=== PATIENT | female | born 1955 | race Caucasian/White ===

== ENCOUNTER 2018-02-21 08:39 | Outpatient (CLI) | payer BC | END 2018-02-21 23:59 | disposition home or self-care (01) | LOC: RAD 08:39 | PROVIDERS: ATTEND Physician Assistant | DX: M22.41 Chondromalacia patellae, right knee (principal); M25.461 Effusion, right knee | CPT/HCPCS: 73721 ==

== ENCOUNTER 2018-08-01 14:27 | Outpatient (CLI) | payer BC ==
[~2018-08-01] VITALS: Ht 170.2 cm; Wt 77.1 kg
[2018-08-01] MEDS ORDERED: LEVO50TA8 PO (15:13)
[2018-08-01] MEDS ORDERED: TRAZ-218 PO (15:13)
[2018-08-01] MEDS ORDERED: CHOL100046 PO (15:13)
[2018-08-01] MEDS ORDERED: ESCI10TA PO (15:13)
[2018-08-01] MEDS ORDERED: LOSA25TA96 PO (15:13)
[2018-08-01] MEDS ORDERED: DOCU-28 PO (15:13)
[2018-08-01] MEDS ORDERED: FIBER PO (15:13)
[2018-08-01] MEDS ORDERED: ATOR20TA PO (15:13)
[2018-08-01 15:31] LABS: BASOPHILS % (AUTO) 0.3 % (0-1); EOSINOPHILS # (AUTO) 0.3 X10'3 (0-0.9); EOSINOPHILS % (AUTO) 4.2 % (0-6); LYMPHOCYTES # (AUTO) 3.1 X10'3 (1.1-4.8); LYMPHOCYTES % (AUTO) 37.9 % (21-51); MEAN CORPUSCULAR HEMOGLOBIN 30.3 PG (27.0-31.0); MEAN CORPUSCULAR HGB CONC 33.2 % (33.0-36.5); MEAN PLATELET VOLUME 7.4 FL (7.4-10.4); MONOCYTES # (AUTO) 0.5 X10'3 (0-0.9); MONOCYTES % (AUTO) 5.6 % (2-12); NEUTROPHILS # (AUTO) 4.2 X10'3 (1.8-7.7); PRE OP HEMATOCRIT 40.4 % (35.0-45.0); PRE OP HEMOGLOBIN 13.4 g/dL (12.0-16.0); PRE OP PLATELET COUNT 241 X10'3 (140-440); RED BLOOD COUNT 4.43 X10'6 (4.20-5.60); RED CELL DISTRIBUTION WIDTH 13.5 % (11.5-14.5)
[2018-08-01 15:34] LABS: CLARITY,URINE CLEAR (Clear); COLOR,URINE YELLOW (Yellow); GLUCOSE, URINE NEGATIVE (Neg); KETONES,URINE NEGATIVE (Neg); LEUKOCYTE ESTERASE ,URINE NEGATIVE (Neg); NITRITES, URINE NEGATIVE (Neg); OCCULT BLOOD,URINE NEGATIVE (Neg); PH,URINE 5.5 (4.8-8.0); PROTEIN,URINE NEGATIVE (Neg); UROBILINOGEN,URINE 0.2 E.U/dL (0.2-1.0)
[2018-08-01 15:36] LABS: UA COLLECTION TYPE CLN CATCH MIDSTREAM
[2018-08-01 15:41] LABS: PRE OP INR 1.1 INR; PRE OP PROTIME 10.7 SECONDS (9.0-12.0)
[2018-08-01 15:53] LABS: ALBUMIN 2.8 G/DL (3.4-5.0); ALBUMIN/GLOBULIN RATIO 0.7 (1.1-1.5); ALKALINE PHOSPHATASE 99 IU/L (46-116); BLOOD UREA NITROGEN 14 MG/DL (7-18); BUN/CREATININE RATIO 18.2 (6.6-38.0); CHLORIDE 104 MMOL/L (99-107); CREATININE 0.77 MG/DL (0.40-0.90); PRE OP ALT 33 U/L (30-65); PRE OP ANION GAP 5 (8-16); PRE OP AST 21 U/L (10-37); PRE OP BILIRUB, TOTAL 0.2 MG/DL (0.0-1.0); PRE OP GLUCOSE 91 MG/DL (70-104); PRE OP POTASSIUM 3.5 MMOL/L (3.4-5.1); PRE OP SODIUM 141 MMOL/L (135-145); TOTAL PROTEIN 6.8 G/DL (6.4-8.2); eGFR 76 ML/MIN
[2018-08-13] MEDS ORDERED: ringers solution, lacted 1,000 ML IV SCH (05:00)
[2018-08-13] MEDS ORDERED: celeCOXIB 100mg capsule PO ONE (05:30)
[2018-08-13] MEDS ORDERED: gabapentin 300mg capsule PO ONE (05:30)
[2018-08-13] MEDS ORDERED: acetaminophen 325mg tablet PO ONE (05:30)
[2018-08-13] MEDS ORDERED: cefazolin/dext.iso 2gm/100 ML IV ONE (05:30)
[2018-08-13] MEDS ORDERED: oxyCODONE SR 10mg (sust. release) tab PO ONE (05:30)
[2018-08-13] MEDS ORDERED: tranexamic acid inj. 1,500 MG in normal saline 100ml IV soln 85 ML IV ONE (05:30)
[2018-08-13] MEDS ORDERED: famotidine 20mg tablet PO ONE (05:30)
[2018-08-13] MEDS ORDERED: metoclopramide 5 mg/ml inj IV ONE (05:30)
== END 2018-08-07 23:59 | disposition home or self-care (01) ==
LOC: PRE-OP 14:27 → EDSTATUS 08-13 07:30
PROVIDERS: ATTEND Specialist
DX: Z01.812 Encounter for preprocedural laboratory examination (principal); M17.11 Unilateral primary osteoarthritis, right knee; E89.0 Postprocedural hypothyroidism; I10 Essential (primary) hypertension; M25.561 Pain in right knee
CPT/HCPCS: 36415; 80053; 81003; 84443; 85025; 85610; 85730; 87070; J0690; J7030; J7120

== ENCOUNTER 2018-09-10 10:48 | Inpatient (IN) | payer BC ==
[2018-08-30 12:08] LABS: BASOPHILS % (AUTO) 0.4 % (0-1); EOSINOPHILS # (AUTO) 0.3 X10'3 (0-0.9); EOSINOPHILS % (AUTO) 4.2 % (0-6); LYMPHOCYTES # (AUTO) 2.9 X10'3 (1.1-4.8); LYMPHOCYTES % (AUTO) 39.3 % (21-51); MEAN CORPUSCULAR HEMOGLOBIN 30.3 PG (27.0-31.0); MEAN CORPUSCULAR HGB CONC 33.1 % (33.0-36.5); MEAN CORPUSCULAR VOLUME 91.6 FL (78-98); MEAN PLATELET VOLUME 7.3 FL (7.4-10.4); MONOCYTES # (AUTO) 0.5 X10'3 (0-0.9); MONOCYTES % (AUTO) 6.4 % (2-12); NEUTROPHILS # (AUTO) 3.6 X10'3 (1.8-7.7); NEUTROPHILS % (AUTO) 49.7 % (42-75); PRE OP HEMATOCRIT 39.5 % (35.0-45.0); PRE OP HEMOGLOBIN 13.1 g/dL (12.0-16.0); PRE OP PLATELET COUNT 273 X10'3 (140-440); RED BLOOD COUNT 4.32 X10'6 (4.20-5.60)
[2018-08-30 12:11] LABS: CLARITY,URINE CLEAR (Clear); COLOR,URINE YELLOW (Yellow); GLUCOSE, URINE NEGATIVE (Neg); KETONES,URINE NEGATIVE (Neg); LEUKOCYTE ESTERASE ,URINE NEGATIVE (Neg); NITRITES, URINE NEGATIVE (Neg); OCCULT BLOOD,URINE NEGATIVE (Neg); PH,URINE 6.5 (4.8-8.0); PROTEIN,URINE NEGATIVE (Neg); UROBILINOGEN,URINE 0.2 E.U/dL (0.2-1.0)
[2018-08-30 12:16] LABS: UA COLLECTION TYPE CLN CATCH MIDSTREAM
[2018-08-30 12:23] LABS: ALBUMIN 2.8 G/DL (3.4-5.0); ALBUMIN/GLOBULIN RATIO 0.7 (1.1-1.5); ALKALINE PHOSPHATASE 102 IU/L (46-116); BLOOD UREA NITROGEN 14 MG/DL (7-18); BUN/CREATININE RATIO 23.3 (6.6-38.0); CALCIUM 9.1 MG/DL (8.5-10.1); CHLORIDE 102 MMOL/L (99-107); PRE OP ALT 38 U/L (30-65); PRE OP ANION GAP 8 (8-16); PRE OP AST 21 U/L (10-37); PRE OP BILIRUB, TOTAL 0.2 MG/DL (0.0-1.0); PRE OP GLUCOSE 83 MG/DL (70-104); PRE OP POTASSIUM 4.3 MMOL/L (3.4-5.1); PRE OP SODIUM 140 MMOL/L (135-145); TOTAL CARBON DIOXIDE 29.6 MMOL/L (24-32); TOTAL PROTEIN 6.8 G/DL (6.4-8.2); eGFR > 90 ML/MIN
[2018-08-30 12:25] LABS: PRE OP PROTIME 10.3 SECONDS (9.0-12.0)
[2018-09-10] VITALS (15 sets, daily range): BP systolic 116–156; BP diastolic 61–83
[~2018-09-10] VITALS: Ht 170.2 cm; Wt 77.1 kg
[~2018-09-10 10:48] MED LIST: ATOR20TA PO; CALC-331; CHOL100046 PO; ESCI10TA PO; LEVO50TA8 PO; LOSA25TA96 PO; TRAZ-218 PO; acetaminophen 325mg tablet PO ONE; cefazolin/dext.iso 2gm/50ml 50 ML IV ONE; celeCOXIB 100mg capsule PO ONE; famotidine 20mg tablet PO ONE; gabapentin 300mg capsule PO ONE; oxyCODONE SR 10mg (sust. release) tab PO ONE; ringers solution, lacted 1,000 ML IV SCH; tranexamic acid inj. 1,500 MG in normal saline 100ml IV soln 85 ML IV ONE
[2018-09-10] MEDS ORDERED: ceFAZolin 1000mg inj ONE (12:29)
[2018-09-10] MEDS ORDERED: ROPIVAcaine 0.5% (5mg/ml) 30ml vial ONE ×3 (12:29→13:39)
[2018-09-10] MEDS ORDERED: bacitracin inj 150,000 UNIT in sodium chloride irrig. sol 3,000 ML IR ONE (12:30)
[2018-09-10] MEDS ORDERED: sevoflurane 250ml liquid IH ONE (12:37)
[2018-09-10] MEDS ORDERED: tetracaine 1% (10mg/ml) pres. free inj. ONE (12:42)
[2018-09-10] MEDS ORDERED: MIDAZolam 1mg/ml 10ml vial ONE (12:43)
[2018-09-10] MEDS ORDERED: fentaNYL/PF 50MCG/1 ML 2ML syringe ONE (12:44)
[2018-09-10] MEDS ORDERED: BUPIVAcaine/dex-water/PF 7.5 mg/ml 2ml ampul ONE (12:46)
[2018-09-10] MEDS ORDERED: ringers solution, lacted 1,000 ML IV SCH (13:31)
[2018-09-10] MEDS ORDERED: ondansetron/PF 4mg/2ml inj IV PRN ×2 (13:35→15:20)
[2018-09-10] MEDS ORDERED: meperidine/PF 25mg/ml syringe IV PRN ×3 (13:35)
[2018-09-10] MEDS ORDERED: morphine 4 MG/ML inj SYRINge IV PRN ×2 (13:35)
[2018-09-10] MEDS ORDERED: proCHLORperazine 10 MG/2 ml inj IV PRN (13:35)
[2018-09-10] MEDS ORDERED: magnesium hydroxide 30ml (MOM) UD suspension PO PRN (15:20)
[2018-09-10] MEDS ORDERED: diphenhydrAMINE 25mg capsule PO PRN ×2 (15:20)
[2018-09-10] MEDS ORDERED: bisacodyl 10mg suppository rectal RC PRN (15:20)
[2018-09-10] MEDS ORDERED: acetaminophen 325mg tablet PO PRN (15:20)
[2018-09-10] MEDS ORDERED: HYDROmorphone 1 mg/ml syringe IV PRN (15:20)
--- NOTE | 2018-09-10 15:28 | NUR ---
Received from OR via , accompanied by Anesthesiologist DR WILSON and report given by Anesthesiolgist. AWAKE AND JAXON PAIN. VITALS STABLE. DRESSING DI. IMMOBILIZER TO RT KNEE. SENSATION JUST ABOVE THE HIPS. AWAN WITH CLEAR URINE.
--- NOTE | 2018-09-10 16:28 | NUR ---
Report called to receiving nurse. Transferred via BED Belongings . Special Issues communicated to receiving nurse. AWAKE AND ORIENTED. VITALS STABLE. DRESSING DI. JAXON PAIN. TO ORTHO RM 4014A AT THIS TIME.
[2018-09-10] MEDS: potassium cl 20mEq in 1/2 NS 1,000 ML IV SCH (16:52)
[2018-09-10] MEDS: ceFAZolin 1GM/D5W- ADD-VANTAGE 50 ML IV SCH ×2 (16:52→23:44)
[2018-09-10] MEDS: oxyCODONE/APAP 10/325mg tablet PO PRN ×2 (19:08→23:50)
[2018-09-10] MEDS: sennosides 8.6mg tablet PO SCH (20:30)
[2018-09-10] MEDS: ascorbic acid 500mg tablet PO SCH (20:31)
[2018-09-10] MEDS: losartan 25mg tablet PO SCH (20:31)
[2018-09-10] MEDS: gabapentin 300mg capsule PO SCH (20:31)
[2018-09-10] MEDS: atorvastatin 20mg tablet PO SCH (20:31)
[2018-09-11] MEDS: potassium cl 20mEq in 1/2 NS 1,000 ML IV SCH ×4 (03:58→22:17)
[2018-09-11] MEDS: oxyCODONE/APAP 10/325mg tablet PO PRN ×4 (05:09→23:15)
--- NOTE | 2018-09-11 06:18 | NUR ---
Problems reprioritized. Patient report given, questions answered & plan of care reviewed with glenroy ayala.
[2018-09-11 06:29] LABS: ANION GAP 8 (8-16); CHLORIDE 105 MMOL/L (99-107); SODIUM 139 MMOL/L (135-145); TOTAL CARBON DIOXIDE 25.6 MMOL/L (24-32)
[2018-09-11 06:31] LABS: PARTIAL THROMBOPLASTIN TIME 34 SECONDS (22-32)
[2018-09-11 06:53] LABS: BASOPHILS % (AUTO) 0 % (0-1); EOSINOPHILS % (AUTO) 0 % (0-6); HEMATOCRIT 35.2 % (35.0-45.0); HEMOGLOBIN 12.3 g/dl (12.0-16.0); LYMPHOCYTES # (AUTO) 1.6 X10'3 (1.1-4.8); LYMPHOCYTES % (AUTO) 15.6 % (21-51); MEAN CORPUSCULAR HGB CONC 34.9 % (33.0-36.5); MEAN CORPUSCULAR VOLUME 91.8 FL (78-98); MEAN PLATELET VOLUME 7.9 FL (7.4-10.4); MONOCYTES # (AUTO) 0.5 X10'3 (0-0.9); NEUTROPHILS # (AUTO) 8.1 X10'3 (1.8-7.7); NEUTROPHILS % (AUTO) 79.4 % (42-75); PLATELET COUNT 219 X10'3 (140-440); RED BLOOD COUNT 3.84 X10'6 (4.20-5.60); RED CELL DISTRIBUTION WIDTH 12.7 % (11.5-14.5); WHITE BLOOD COUNT 10.2 X10'3 (4.5-11.0)
[2018-09-11 07:15] VITALS: BP 121/73
[2018-09-11] MEDS: gabapentin 300mg capsule PO SCH ×3 (07:50→20:07)
[2018-09-11] MEDS: multivitamins, therapeutics tablet PO SCH (07:50)
[2018-09-11] MEDS: levoTHYROXINE 25mcg tablet PO SCH (07:50)
[2018-09-11] MEDS: ascorbic acid 500mg tablet PO SCH ×2 (07:50→20:07)
[2018-09-11] MEDS: CITALOpram 10mg tablet PO SCH (07:50)
[2018-09-11 10:43] LABS: INR 1.5 INR; PROTHROMBIN TIME 15.1 SECONDS (9.0-12.0)
[2018-09-11] MEDS ORDERED: warfarin 3mg tablet PO ONE (10:55)
[2018-09-11 12:05] VITALS: BP 104/49
--- NOTE | 2018-09-11 14:26 | NUR ---
Joint replacement consult: Pt PO 100% regular diet meeting wound helaing needs. No nutrition concerns at this time. Addendum: 09/11/18 at [address] Amended: Links added.
[2018-09-11 15:06] VITALS: BP 110/53
[2018-09-11 18:00] VITALS: BP 116/57
--- NOTE | 2018-09-11 18:19 | NUR ---
Patient in room ORTHO 4014. I have received report from glenroy Ken and had the opportunity to ask questions and assume patient care.
[2018-09-11] MEDS: celeCOXIB 100mg capsule PO SCH (20:07)
[2018-09-11] MEDS: sennosides 8.6mg tablet PO SCH (20:07)
[2018-09-11] MEDS: atorvastatin 20mg tablet PO SCH (20:07)
[2018-09-11] MEDS: losartan 25mg tablet PO SCH (20:07)
[2018-09-11 22:00] VITALS: BP 123/64
[2018-09-12] MEDS: oxyCODONE/APAP 10/325mg tablet PO PRN ×3 (05:06→19:51)
[2018-09-12 06:00] VITALS: BP_SYST 112; BP_SYST 116; BP_DIAS 48; BP_DIAS 62
[2018-09-12 06:16] LABS: PARTIAL THROMBOPLASTIN TIME 38 SECONDS (22-32)
[2018-09-12 06:18] LABS: BASOPHILS % (AUTO) 0.3 % (0-1); EOSINOPHILS # (AUTO) 0.3 X10'3 (0-0.9); EOSINOPHILS % (AUTO) 2.5 % (0-6); HEMATOCRIT 34.3 % (35.0-45.0); HEMOGLOBIN 11.9 g/dl (12.0-16.0); LYMPHOCYTES # (AUTO) 3.2 X10'3 (1.1-4.8); LYMPHOCYTES % (AUTO) 31.3 % (21-51); MEAN CORPUSCULAR HEMOGLOBIN 31.7 PG (27.0-31.0); MEAN CORPUSCULAR HGB CONC 34.6 % (33.0-36.5); MEAN CORPUSCULAR VOLUME 91.7 FL (78-98); MEAN PLATELET VOLUME 7.9 FL (7.4-10.4); MONOCYTES # (AUTO) 0.6 X10'3 (0-0.9); MONOCYTES % (AUTO) 5.7 % (2-12); NEUTROPHILS # (AUTO) 6.2 X10'3 (1.8-7.7); NEUTROPHILS % (AUTO) 60.2 % (42-75); PLATELET COUNT 221 X10'3 (140-440); RED BLOOD COUNT 3.74 X10'6 (4.20-5.60); RED CELL DISTRIBUTION WIDTH 12.9 % (11.5-14.5); WHITE BLOOD COUNT 10.3 X10'3 (4.5-11.0)
--- NOTE | 2018-09-12 06:29 | NUR ---
Problems reprioritized. Patient report given, questions answered & plan of care reviewed with TAMMY KESSLER.
[2018-09-12] MEDS: potassium cl 20mEq in 1/2 NS 1,000 ML IV SCH (07:16)
[2018-09-12 08:29] LABS: INR 1.6 INR
[2018-09-12] MEDS: multivitamins, therapeutics tablet PO SCH (08:55)
[2018-09-12] MEDS: CITALOpram 10mg tablet PO SCH (08:55)
[2018-09-12] MEDS: gabapentin 300mg capsule PO SCH ×3 (08:55→20:37)
[2018-09-12] MEDS: ascorbic acid 500mg tablet PO SCH ×2 (08:55→19:51)
[2018-09-12] MEDS: celeCOXIB 100mg capsule PO SCH ×2 (08:55→19:51)
[2018-09-12 10:00] VITALS: BP 110/59
[2018-09-12] MEDS ORDERED: warfarin 3mg tablet PO ONE (10:00)
[2018-09-12] MEDS: levoTHYROXINE 25mcg tablet PO SCH (11:09)
--- NOTE | 2018-09-12 13:33 | NUR ---
Consult re: low albumin: Pt currently on regular diet with documented PO intake 100% meeting nutrient needs with adequate protein. Will continue to follow. Addendum: 09/12/18 at [address] Amended: Links added.
[2018-09-12] MEDS ORDERED: acetaminophen 325mg tablet PO PRN (15:20)
[2018-09-12 18:00] VITALS: BP 112/55
--- NOTE | 2018-09-12 18:24 | NUR ---
Report to Carline MUNOZ
--- NOTE | 2018-09-12 18:27 | NUR ---
Patient in room ORTHO 4014. I have received report from Lilian MUNOZ and had the opportunity to ask questions and assume patient care.
[2018-09-12] MEDS: losartan 25mg tablet PO SCH (20:37)
[2018-09-12] MEDS: atorvastatin 20mg tablet PO SCH (20:37)
[2018-09-12] MEDS: sennosides 8.6mg tablet PO SCH (20:37)
[2018-09-12 22:00] VITALS: BP 101/42
[2018-09-13] MEDS: oxyCODONE/APAP 10/325mg tablet PO PRN ×4 (00:54→15:01)
[2018-09-13 06:00] VITALS: BP 131/47
--- NOTE | 2018-09-13 06:30 | NUR ---
Patient in room ORTHO 4014. I have received report from TAMMY Crowley and had the opportunity to ask questions and assume patient care.
--- NOTE | 2018-09-13 06:38 | NUR ---
Problems reprioritized. Patient report given, questions answered & plan of care reviewed with Calista MUNOZ.
[2018-09-13 07:03] LABS: BASOPHILS % (AUTO) 0.4 % (0-1); EOSINOPHILS # (AUTO) 0.3 X10'3 (0-0.9); EOSINOPHILS % (AUTO) 3.2 % (0-6); HEMATOCRIT 35.3 % (35.0-45.0); HEMOGLOBIN 11.9 g/dl (12.0-16.0); LYMPHOCYTES # (AUTO) 2.4 X10'3 (1.1-4.8); LYMPHOCYTES % (AUTO) 27.9 % (21-51); MEAN CORPUSCULAR HEMOGLOBIN 31.1 PG (27.0-31.0); MEAN CORPUSCULAR HGB CONC 33.9 % (33.0-36.5); MEAN CORPUSCULAR VOLUME 91.9 FL (78-98); MEAN PLATELET VOLUME 7.9 FL (7.4-10.4); MONOCYTES # (AUTO) 0.6 X10'3 (0-0.9); MONOCYTES % (AUTO) 6.7 % (2-12); NEUTROPHILS # (AUTO) 5.2 X10'3 (1.8-7.7); NEUTROPHILS % (AUTO) 61.8 % (42-75); PLATELET COUNT 214 X10'3 (140-440); RED BLOOD COUNT 3.84 X10'6 (4.20-5.60); RED CELL DISTRIBUTION WIDTH 12.9 % (11.5-14.5); WHITE BLOOD COUNT 8.5 X10'3 (4.5-11.0)
[2018-09-13] MEDS: levoTHYROXINE 25mcg tablet PO SCH (07:08)
[2018-09-13] MEDS: celeCOXIB 100mg capsule PO SCH (07:08)
[2018-09-13] MEDS: CITALOpram 10mg tablet PO SCH (07:08)
[2018-09-13] MEDS: ascorbic acid 500mg tablet PO SCH (07:09)
[2018-09-13] MEDS: gabapentin 300mg capsule PO SCH ×2 (07:09→13:56)
[2018-09-13] MEDS: multivitamins, therapeutics tablet PO SCH (07:09)
[2018-09-13 07:14] LABS: INR 1.4 INR; PARTIAL THROMBOPLASTIN TIME 41 SECONDS (22-32); PROTHROMBIN TIME 14.3 SECONDS (9.0-12.0)
[2018-09-13 10:00] VITALS: BP 131/51
[2018-09-13] MEDS ORDERED: warfarin 5mg tablet PO ONE (10:00)
== END 2018-09-13 15:09 | disposition home or self-care (01) | DRG 470 ==
LOC: PAS IN 11:02 → EDSTATUS 13:30 → ORTHO 4S 16:31
PROVIDERS: ADMIT Specialist; ATTEND Specialist
PROC: 0MNN0ZZ Release Right Knee Bursa and Ligament, Open Approach (ICD-10-PCS; 2018-09-10)
PROC: 3E0T3BZ Introduction of Anesthetic Agent into Peripheral Nerves and Plexi, Percutaneous Approach (ICD-10-PCS; 2018-09-10)
PROC: 0SRC0J9 Replacement of Right Knee Joint with Synthetic Substitute, Cemented, Open Approach (ICD-10-PCS; principal; 2018-09-10 12:37)
DX: M17.11 Unilateral primary osteoarthritis, right knee (principal); D62 Acute posthemorrhagic anemia; M21.061 Valgus deformity, not elsewhere classified, right knee; Z96.641 Presence of right artificial hip joint; E78.5 Hyperlipidemia, unspecified; Z60.2 Problems related to living alone; F32.9 Major depressive disorder, single episode, unspecified; I10 Essential (primary) hypertension; Z95.0 Presence of cardiac pacemaker; Z79.899 Other long term (current) drug therapy
CPT/HCPCS: 36415; 73560; 80051; 80053; 81003; 85025; 85610; 85730; 87070; 93005; 97110; 97116; 97161; 97530; A6449; A6455; A7000; C1713; C1758; C1776; G0378; J0690; J1170; J2250; J2795; J3010; J3490; J7030; J7120

== ENCOUNTER 2021-10-06 14:26 | Outpatient (CLI) | payer MEDICARE, BC ==
[~2021-10-06 14:26] MED LIST changes: -TRAZ-218 PO; +TRAZ-251 PO; -acetaminophen 325mg tablet PO ONE; -cefazolin/dext.iso 2gm/50ml 50 ML IV ONE; -celeCOXIB 100mg capsule PO ONE; -famotidine 20mg tablet PO ONE; -gabapentin 300mg capsule PO ONE; -oxyCODONE SR 10mg (sust. release) tab PO ONE; -ringers solution, lacted 1,000 ML IV SCH; -tranexamic acid inj. 1,500 MG in normal saline 100ml IV soln 85 ML IV ONE
== END 2021-10-06 23:59 | disposition home or self-care (01) ==
LOC: RAD 14:26
DX: R13.12 Dysphagia, oropharyngeal phase (principal); I69.391 Dysphagia following cerebral infarction; I69.322 Dysarthria following cerebral infarction
CPT/HCPCS: 74230

== ENCOUNTER 2021-12-04 12:50 | Emergency (ER) | payer MEDICARE, BC ==
[~2021-12-04] VITALS: Ht 170.2 cm; Wt 72.7 kg
[2021-12-04 13:17] VITALS: BP 146/71
== END 2021-12-04 19:35 | disposition left against medical advice (07) ==
LOC: ER 12:51
DX: M54.50 Low back pain, unspecified (principal); Z53.21 Procedure and treatment not carried out due to patient leaving prior to being seen by health care provider

== ENCOUNTER 2022-07-11 09:49 | Day surgery (SDC) | payer MEDICARE, BC ==
[2022-07-11 10:00] VITALS: BP 156/70
[2022-07-11] MEDS ORDERED: MULT-1085 PO (10:25)
[2022-07-11] MEDS ORDERED: LACT1CAP65 PO (10:26)
[2022-07-11] MEDS ORDERED: DENO60DI SQ (10:27)
[2022-07-11] MEDS ORDERED: APIX5TAB3 PO (10:27)
[2022-07-11] MEDS ORDERED: DULO20CA18 PO (10:27)
[2022-07-11] MEDS ORDERED: EZET10TA48 PO (10:27)
[2022-07-11] MEDS ORDERED: ROSU40TA22 PO (10:27)
[2022-07-11] MEDS ORDERED: fentaNYL/PF 50MCG/1 ML 2ML syringe ONE (11:09)
[2022-07-11] MEDS ORDERED: MIDAZolam 1 MG/ML 5ML VIAL ONE (11:09)
[2022-07-11 12:13] VITALS: BP 132/71
[2022-07-11 12:19] VITALS: BP 119/71
[2022-07-11 12:29] VITALS: BP 133/78
[2022-07-11 12:39] VITALS: BP 132/81
== END 2022-07-11 13:10 | disposition home or self-care (01) ==
LOC: GI LAB 09:49
PROVIDERS: ATTEND Internal Medicine Gastroenterology
DX: K62.1 Rectal polyp (principal); K64.8 Other hemorrhoids; K59.00 Constipation, unspecified; Z86.010 Personal history of colon polyps
CPT/HCPCS: 45385; C1773; G0500; J2250; J3010; J7030; Z7512; 99152; 99153; A4620; C1889

== ENCOUNTER 2022-10-24 09:18 | Day surgery (SDC) | payer MEDICARE, BC ==
[~2022-10-24] VITALS: Ht 170.2 cm; Wt 72.3 kg
[~2022-10-24 09:18] MED LIST changes: +APIX5TAB3 PO; -ATOR20TA PO; +DENO60DI SQ; +DULO20CA18 PO; -ESCI10TA PO; +EZET10TA48 PO; +LACT1CAP65 PO; -LOSA25TA96 PO; +MULT-1085 PO; +ROSU40TA22 PO
[2022-10-24 09:30] VITALS: BP 144/80
[2022-10-24] MEDS ORDERED: BUDE10.2 (10:05)
[2022-10-24] MEDS ORDERED: ADV50100 (10:05)
[2022-10-24] MEDS ORDERED: fentaNYL/PF 50MCG/1 ML 2ML syringe ONE (10:59)
[2022-10-24] MEDS ORDERED: MIDAZolam 1 MG/ML 5ML VIAL ONE (10:59)
[2022-10-24] MEDS ORDERED: LIDOcaine Viscous 15ml cup ONE (10:59)
[2022-10-24 12:05] VITALS: BP 118/73
[2022-10-24 12:15] VITALS: BP 116/69
[2022-10-24 12:25] VITALS: BP 119/73
== END 2022-10-24 12:45 | disposition home or self-care (01) ==
LOC: GI LAB 09:18
PROVIDERS: ATTEND Internal Medicine Gastroenterology
DX: R13.10 Dysphagia, unspecified (principal); K29.50 Unspecified chronic gastritis without bleeding; K20.80 Other esophagitis without bleeding; K22.89 Other specified disease of esophagus; K44.9 Diaphragmatic hernia without obstruction or gangrene; I48.91 Unspecified atrial fibrillation; J44.9 Chronic obstructive pulmonary disease, unspecified; Z95.0 Presence of cardiac pacemaker; Z86.73 Personal history of transient ischemic attack (TIA), and cerebral infarction without residual deficits; Z79.899 Other long term (current) drug therapy
CPT/HCPCS: 43239; G0500; J2250; J3010; J7030; Z7512; 99152; A4620